=== PATIENT | male | born 1955 | race Caucasian/White ===

== ENCOUNTER → 2023-10-31 15:26 | Outpatient (REF) | payer MEDICARE, OTHER, SELFPAY | LOC: HWRAD 15:26 | PROVIDERS: ATTENDING PHYSICIAN Nurse Practitioner Family | DX: R05.3 Chronic cough (principal); J34.89 Other specified disorders of nose and nasal sinuses | CPT/HCPCS: 70486 ==

== ENCOUNTER → 2024-02-01 11:15 | Outpatient (REF) | payer MEDICARE, OTHER, SELFPAY ==
[2024-02-01 12:09] LABS: % Basophils 0.6 % (0-2); % Immature Granulocytes 0.3 % (0-0.5); % Lymphocytes 14.3 % (20.5-51.1); % Monocytes 9.8 % (1.7-9.3); Absolute Basophils 0.1 10^3/uL (0-0.2); Absolute Eosinophils 0.4 10^3/uL (0-0.7); Absolute Lymphocytes 1.4 10^3/uL (1.2-3.4); Absolute Monocytes 0.9 10^3/uL (0.1-0.6); Absolute Neutrophils 6.8 10^3/uL (1.4-6.5); Hematocrit 46.7 % (39.0-52.0); Hemoglobin 15.1 g/dL (13.0-18.0); Mean Corp Hgb Conc. 32.3 g/dL (33.0-37.0); Mean Corpuscular Hgb 28.8 pg (27.0-31.0); Mean Platelet Volume 11.1 fL (7.4-10.4); Nucleated Red Blood Cells % 0 % (-); Platelet Count 188 10^3/uL (130-400); Red Blood Cell Count 5.25 10^6/uL (4.70-6.10); Red Cell Dist. Width 15.2 % (11.5-14.5); White Blood Cell Count 9.6 10^3/uL (4.8-10.8)
[2024-02-01 12:40] LABS: Blood Urea Nitrogen 19 mg/dl (9-20); Calcium 10.4 mg/dl (8.4-10.2); Carbon Dioxide 28 mmol/L (22-30); Chloride 105 mmol/L (98-107); Glucose 89 mg/dl (70-99); Potassium 5.2 mmol/L (3.5-5.1); Sodium 140 mmol/L (135-145); eGFR > 60.00
== END ==
LOC: REG 11:15
PROVIDERS: ATTENDING PHYSICIAN Internal Medicine Cardiovascular Disease; FAMILY PHYSICIAN Internal Medicine Geriatric Medicine
DX: I48.0 Paroxysmal atrial fibrillation (principal)
CPT/HCPCS: 36415; 80048; 85025

== ENCOUNTER → 2024-04-24 08:17 | Outpatient (REF) | payer MEDICARE, OTHER, SELFPAY ==
[2024-04-24 09:23] LABS: % Basophils 0.6 % (0-2); % Eosinophils 3.7 % (0-6); % Immature Granulocytes 0.2 % (0-0.5); % Lymphocytes 14.8 % (20.5-51.1); % Monocytes 7.8 % (1.7-9.3); % Neutrophils 72.9 % (42.2-75.2); Absolute Basophils 0.1 10^3/uL (0-0.2); Absolute Eosinophils 0.4 10^3/uL (0-0.7); Absolute Lymphocytes 1.4 10^3/uL (1.2-3.4); Absolute Monocytes 0.7 10^3/uL (0.1-0.6); Absolute Neutrophils 6.9 10^3/uL (1.4-6.5); Hematocrit 43.4 % (39.0-52.0); Hemoglobin 14.6 g/dL (13.0-18.0); Mean Corp Hgb Conc. 33.6 g/dL (33.0-37.0); Mean Corpuscular Hgb 28.3 pg (27.0-31.0); Mean Corpuscular Volume 84.1 fL (80.0-94.0); Mean Platelet Volume 11.2 fL (7.4-10.4); Nucleated Red Blood Cells % 0 % (-); Platelet Count 176 10^3/uL (130-400); Red Blood Cell Count 5.16 10^6/uL (4.70-6.10); Red Cell Dist. Width 15.5 % (11.5-14.5); White Blood Cell Count 9.4 10^3/uL (4.8-10.8)
[2024-04-24 09:28] LABS: INR 1.51; PT 18.3 Sec (11.4-14.6)
[2024-04-24 09:29] LABS: APTT 35.9 Sec (23.4-35.0)
[2024-04-24 11:19] LABS: Blood Urea Nitrogen 22 mg/dl (9-20); Calcium 9.7 mg/dl (8.4-10.2); Carbon Dioxide 25 mmol/L (22-30); Chloride 102 mmol/L (98-107); Glucose 98 mg/dl (70-99); Potassium 4.3 mmol/L (3.5-5.1); Sodium 142 mmol/L (135-145); eGFR > 60.00
== END ==
LOC: REG 08:17
PROVIDERS: ATTENDING PHYSICIAN Internal Medicine Clinical Cardiac Electrophysiology; FAMILY PHYSICIAN Internal Medicine Geriatric Medicine
DX: I42.2 Other hypertrophic cardiomyopathy (principal); I48.91 Unspecified atrial fibrillation
CPT/HCPCS: 36415; 80048; 85025; 85610; 85730

== ENCOUNTER → 2024-06-25 08:38 | Outpatient (REF) | payer MEDICARE, OTHER, SELFPAY ==
[2024-06-25 10:03] LABS: % Basophils 0.5 % (0-2); % Eosinophils 5.5 % (0-6); % Immature Granulocytes 0.2 % (0-0.5); % Lymphocytes 10.2 % (20.5-51.1); % Monocytes 9.4 % (1.7-9.3); % Neutrophils 74.2 % (42.2-75.2); Absolute Eosinophils 0.5 10^3/uL (0-0.7); Absolute Lymphocytes 0.8 10^3/uL (1.2-3.4); Absolute Monocytes 0.8 10^3/uL (0.1-0.6); Absolute Neutrophils 6.1 10^3/uL (1.4-6.5); Hematocrit 44.6 % (39.0-52.0); Mean Corp Hgb Conc. 33.6 g/dL (33.0-37.0); Mean Corpuscular Hgb 28.1 pg (27.0-31.0); Mean Corpuscular Volume 83.7 fL (80.0-94.0); Mean Platelet Volume 11.8 fL (7.4-10.4); Nucleated Red Blood Cells % 0 % (-); Platelet Count 152 10^3/uL (130-400); Red Blood Cell Count 5.33 10^6/uL (4.70-6.10); Red Cell Dist. Width 14.8 % (11.5-14.5); White Blood Cell Count 8.2 10^3/uL (4.8-10.8)
[2024-06-25 10:59] LABS: NT-proBNP 292 pg/ml
[2024-06-25 11:01] LABS: ALT (SGPT) 71 U/L (0-50); AST (SGOT) 59 U/L (17-59); Albumin 4.7 g/dl (3.5-5.0); Alkaline Phosphatase 72 U/L (38-126); Blood Urea Nitrogen 25 mg/dl (9-20); Calcium 9.7 mg/dl (8.4-10.2); Carbon Dioxide 24 mmol/L (22-30); Chloride 104 mmol/L (98-107); Glucose 88 mg/dl (70-99); Iron 104 ug/dl (49-181); Potassium 4.1 mmol/L (3.5-5.1); Sodium 143 mmol/L (135-145); Total Bilirubin 0.9 mg/dl (0.2-1.3); Total Protein 7.2 g/dl (6.3-8.2); eGFR > 60.00
[2024-06-27 12:01] LABS: Transferrin 289 mg/dL (200-360)
== END ==
LOC: REG 08:38
PROVIDERS: ATTENDING PHYSICIAN Internal Medicine Advanced Heart Failure and Transplant Cardiology; FAMILY PHYSICIAN Internal Medicine Geriatric Medicine
DX: I42.2 Other hypertrophic cardiomyopathy (principal); I50.9 Heart failure, unspecified
CPT/HCPCS: 36415; 80053; 82728; 83540; 83880; 84466; 85025; 86900; 86901

== ENCOUNTER 2024-08-18 21:44 | Inpatient (IN) | payer MEDICARE, OTHER, SELFPAY ==
[2024-08-18] VITALS (13 sets, daily range): BP systolic 73–90; BP diastolic 53–73
[2024-08-18 17:58] LABS: % Basophils 0.5 % (0-2); % Eosinophils 2.8 % (0-6); % Immature Granulocytes 0.2 % (0-0.5); % Lymphocytes 15.7 % (20.5-51.1); % Monocytes 10.8 % (1.7-9.3); Absolute Basophils 0.1 10^3/uL (0-0.2); Absolute Eosinophils 0.3 10^3/uL (0-0.7); Absolute Lymphocytes 1.6 10^3/uL (1.2-3.4); Absolute Monocytes 1.1 10^3/uL (0.1-0.6); Absolute Neutrophils 7.1 10^3/uL (1.4-6.5); Hematocrit 49.1 % (39.0-52.0); Hemoglobin 16.2 g/dL (13.0-18.0); Mean Corpuscular Hgb 28.8 pg (27.0-31.0); Mean Corpuscular Volume 87.4 fL (80.0-94.0); Mean Platelet Volume 11.1 fL (7.4-10.4); Nucleated Red Blood Cells % 0 % (-); Platelet Count 186 10^3/uL (130-400); Red Blood Cell Count 5.62 10^6/uL (4.70-6.10); Red Cell Dist. Width 15.8 % (11.5-14.5); White Blood Cell Count 10.1 10^3/uL (4.8-10.8)
[2024-08-18 18:14] LABS: ALT (SGPT) 51 U/L (0-50); AST (SGOT) 49 U/L (17-59); Alkaline Phosphatase 62 U/L (38-126); Blood Urea Nitrogen 35 mg/dl (9-20); Calcium 9.6 mg/dl (8.4-10.2); Chloride 103 mmol/L (98-107); Glucose 100 mg/dl (70-99); Potassium 4.8 mmol/L (3.5-5.1); Sodium 141 mmol/L (135-145); Total Bilirubin 0.6 mg/dl (0.2-1.3); Total Protein 7.3 g/dl (6.3-8.2); eGFR 55.09
[2024-08-18 18:23] LABS: Albumin 4.9 g/dl (3.5-5.0); Carbon Dioxide 23 mmol/L (22-30)
--- NOTE | 2024-08-18 18:31 | ED.GENMED ---
History of Present Illness
General
Chief Complaint: Cardiac Symptoms
Source: patient and spouse
Exam Limitations: none
Time Seen by Provider: 08/18/24 18:10
Nursing documentation reviewed up to this point in time: agreed with
History of Present Illness
History of Present Illness:
69-year-old male presents emergency department due to chest pressure and palpitations ongoing throughout today. He still feels some chest pressure. He has history of atrial fibrillation, and follows with cardiology at [facility].
He has an ICD that was initially implanted in the mid .
Past History
Past History
ED Past Medical History: Arrthythmia (A fib) and Other (Hypertrophic Cardiomyopathy); Negative Asthma, HTN, Hypercholesterolemia or NIDDM
ED Past Surgical History: Cardiac (Defibulator,, Ablation) and Other (ENT)
Social History
Tobacco: Non-smoker
Alcohol: Occasional
Drug: None
Personal:
Living: with family
Employment: Employed
Family History
Family History: Other (Noncontributory)
Review of Systems
Review of Systems
Allergies reviewed?: Yes
All Other Systems: Not applicable
Constitutional: Reports no symptoms
EENT: Reports no symptoms
Respiratory: Reports no symptoms
Cardiac: Reports chest pain and palpitations
ABD/GI: Reports no symptoms
: Reports no symptoms
Musculoskeletal: Reports no symptoms
Skin: Reports no symptoms
Neurological: Reports no symptoms
Endocrine: Reports no symptoms
Hematologic/Lymphatic: Reports no symptoms
Psychiatric: Reports no symptoms
Phy Exam
Physical Exam
Physical Exam:
Physical Exam
General: no apparent distress, not acutely ill
Neck: supple. no meningeal signs. normal posterior pharynx
Heart: s1/s2 regular rate and rhythm, no murmur. equal radial
pulses. pacemaker.
HEENT: Pupils equal round reactive to light, EOMI
Lungs: no acute respiratory distress. clear bilaterally
Abdomen: normal bowel sounds. not tender. no CVAT
Neuro: alert and oriented. no focal neurological deficits cranial nerves II through XII intact
Skin: no rash
Psychiatric: well kept. interactive and cooperative
Extremities: no edema. no calf tenderness. negative homans. good distal pulses
Course
Orders/Labs/Results
Orders:
Orders
08/18/24 17:22
Electrocardiogram (*1) Urgent
Reason for Study: Atrial Fibrillation
EKG- Treatment ONCE
08/18/24 17:40
CR Chest - 2 Views Urgent
Comment:
Reason For Exam: SOB
08/18/24 17:50
Complete Blood Count/With Diff Urgent
Comprehensive Metabolic Panel Urgent
NT-proBNP Urgent
Troponin I Urgent
08/18/24 20:42
0.9% Sodium Chloride 500 ml [Nss] 500 ml IV BOLUS
Abnormal Lab Results
08/18/24
17:50
RDW 15.8 H %
(11.5-14.5)
MPV 11.1 H fL
(7.4-10.4)
Absolute Neuts (auto) 7.1 H 10^3/uL
(1.4-6.5)
Absolute Monos (auto) 1.1 H 10^3/uL
(0.1-0.6)
Lymphocytes % 15.7 L %
(20.5-51.1)
Monocytes % 10.8 H %
(1.7-9.3)
BUN 35 H mg/dl
(9-20)
Creatinine 1.4 H mg/dL
(0.7-1.3)
Glucose 100 H mg/dl
(70-99)
ALT 51 H U/L
(0-50)
08/18/24 17:50
08/18/24 17:50
Vital Signs
Initial and Last Documented VS:
Initial Vital Signs
Temp Pulse Resp BP Pulse Ox
98.2 F 110 20 90/58 99
08/18/24 17:37 08/18/24 17:37 08/18/24 17:37 08/18/24 17:37 08/18/24 17:37
Last Documented Vital Signs
Temp Pulse Resp BP Pulse Ox
98.2 F 110 20 90/58 99
08/18/24 17:37 08/18/24 17:37 08/18/24 17:37 08/18/24 17:37 08/18/24 17:37
MDM/Problems Addressed
Differential Diagnosis Includes:
Dysrhythmia, hypovolemia, acute renal failure
MDM/Problems Addressed:
Six 9-year-old male with hyperkalemia, acute renal failure. Admit to hospitalist. No dysrhythmia noted.
Chronic conditions affecting care: Cardiomyopathy and Arrhythmia
Acute Exacerbation and/or Progression of Chronic Illness: Cardiomyopathy and Arrhythmia
*Radiology
Radiology exam reviewed: preliminary read by ED provider (Chest x-ray no acute findings)
*Pulse Oximetry
Patient hypoxic: no
*EKG
Interpreted by ED Provider?: Yes
EKG Intrepretation Date: 08/18/24
EKG Intrepretation Time: 17:45
Interpretation: abnormal
Comparison EKG: no changes
Heart Rate: 104
Rate: tachycardiac
Rhythm: ventricular paced
[place]: normal axis
Interval: normal interval
QRS Pattern: left bundle branch block
Ischemia: no ischemia
*Sales Marketing Manager Interpretation
Rate: normal
Interpretation: abnormal
Heart Rate: 90
Rhythm: ventricular paced
*Critical Care Note
Total Time (30-74mins, 75-104mins- exclusive of procedures): Not Applicable
Data Reviewed
Review of Other/Old Records Reveals: Labs (Creatinine 1.0 on 06/25/2024)
Source: records
Patient Management
Social determinants of health affecting care: Living situation and Strong social support
Discussion with other providers: Hospitalist
Escalation/DeEscalation of care consider admission/obs:
Admission indicated
ED Attending Note
-
Portions of this chart may have been created with voice recognition software.� Occasional wrong word or��sound alike� substitutions may have occurred due to the inherent limitations of voice recognition software.
Discharge Plan
Departure
Patient Disposition: Admit
Date of Disposition: 08/18/24
Time of Disposition: 20:43
Admit to: IMU
Presentation/result/management discussed w/ accepting MD/DO: Hospitalist
Patient with high blood pressure during this ER visit?: No
Condition: Fair
Discharge Problem:
Acute renal failure, Hypovolemia, Palpitations
Prescriptions:
No Action
zolpidem 10 MG tablet
10 mg PO HSPRN PRN (Reason: insomnia)
escitalopram oxalate 10 MG tablet
10 mg PO DAILY
rivaroxaban [Xarelto] 20 MG tablet
20 mg PO DAILY
ofloxacin 1 DROP drops
2 drp RIGHT EAR BID
prednisone 20 MG tablet
20 mg PO DAILY
clindamycin HCl 150 MG capsule
150 mg PO Q6
sulfamethoxazole-trimethoprim 1 TABLET tablet
1 tab PO Q12H
nadolol 20 MG tablet
20 mg PO DAILY
oxycodone-acetaminophen 5 MG/325 MG tablet
1 tab PO Q6HPRN PRN (Reason: severe post op pain)
famotidine 20 MG tablet
20 mg PO BID Qty: 28 0RF
Rx Instructions:
Take 20 mg twice a day for 14 days
ascorbic acid (vitamin C) [Vitamin C] 500 MG tablet
1,000 mg PO BID Qty: 56 0RF
Rx Instructions:
Take 1,000 mg twice a day for 14 days
zinc sulfate 220 MG capsule
220 mg PO DAILY Qty: 14 0RF
Rx Instructions:
Take 220 mg daily for 14 days
cholecalciferol (vitamin D3) 1,000 UNITS tablet
2,000 units PO DAILY Qty: 28 0RF
Rx Instructions:
Take 2,000 units daily for 14 days
melatonin 5 MG tablet
5 mg PO HS Qty: 14 0RF
Rx Instructions:
Take 5 mg daily at bedtime for 14 days
Referrals:
Alex Dietz MD [Active] -
Interventions
Interventions:
*General Assessment Last Done: 08/18/24 17:37
Discharge Date and Time
Print Language: NAURUAN
[2024-08-18 18:44] LABS: NT-proBNP 1330 pg/ml
[2024-08-18] MEDS: NSS 500 IV (21:00)
--- NOTE | 2024-08-18 21:26 | HPS.HSE ---
Family Physician
-
Family Physician: Tao Chicas
Chief Complaint
-
chest pressure, palpitations
History of Present Illness
69-year-old male past medical history of atrial fibrillation, hypertrophic cardiomyopathy with ICD, presenting with chest pain and palpitations ongoing throughout the day for the past few days. He denies any dizziness. He denies any lower
extremity edema or weight gain.
Patient follows cardiology at [place] and is enrolled in the study and was recently on amiodarone which was stopped in August.
He denies any fevers or chills, upper respiratory symptoms, cough, urinary symptoms, nausea vomiting or diarrhea.
Medical History
Past Medical History
Past Medical History: Reports Other (atrial fibrillation, hypertrophic cardiomyopathy with ICD)
Past Surgical History: Reports None
Social History
Tobacco: Non-smoker
Alcohol: None
Drug: None
Family History
Family History: Not pertinent
Allergies / Home Medications
Allergies reflects when Allergies were last updated in [facility].
Home Medications with original date entered in [facility]
Allergy/Medication List:
Allergies
Allergy/AdvReac Type Severity Reaction Status Date / Time
doxycycline Allergy Mild Unknown Verified 08/18/24 17:37
Home Medications
rivaroxaban 20 mg tablet (Xarelto) 20 mg PO DAILY 12/05/18
Mupirocin 5 mg irrigation BID 08/18/24
budesonide 0.5 mg/2 mL suspension for nebulization 0.5 mg irrigation BID 08/18/24
empagliflozin 10 mg tablet (Jardiance) 10 mg PO DAILY 08/18/24
eszopiclone 3 mg tablet (Lunesta) 3 mg PO HS 08/18/24
furosemide 40 mg tablet 40 mg PO DAILY 08/18/24
magnesium oxide 250 mg PO DAILY 08/18/24
metoprolol succinate 25 mg tablet,extended release 24 hr 50 mg PO QPM 08/18/24
rosuvastatin 20 mg tablet 20 mg PO DAILY 08/18/24
sacubitril 49 mg-valsartan 51 mg tablet (Entresto) 1 tab PO BID 08/18/24
spironolactone 25 mg tablet 25 mg PO DAILY 08/18/24
therapeutic multivitamin 1 tab PO DAILY 08/18/24
Review of Systems
-
History Source: Patient
A 12 point ROS was completed and negative except as noted: Yes
Constitutional: Reports No Symptoms
EENT: Reports No Symptoms
Respiratory: Reports See HPI
Cardiac: Reports See HPI
Abdomen/GI: Reports No Symptoms
: Reports No Symptoms
Musculoskeletal: Reports No Symptoms
Skin: Reports No Symptoms
Neurological: Reports No Symptoms
Endocrine: Reports No Symptoms
Hematologic/Lymphatic: Reports No Symptoms
Psych: Reports No Symptoms
Physical Exam
Vital Signs
Vital Signs
Temp Pulse Resp BP Pulse Ox
98.2 F 110 20 90/58 99
08/18/24 17:37 08/18/24 17:37 08/18/24 17:37 08/18/24 17:37 08/18/24 17:37
Physical Exam
General: Well Developed, Well Nourished and No Apparent Distress
HEENT: NormoCephalic, Moist mucous membranes and Atraumatic
Respiratory: Clear
Cardiac: S1/S2 and Regular Rhythm; No Murmur or Rub
GI: Soft, Non Tender, Non Distended and Normal Bowel Sounds; No Organomegaly
Rectal: Deferred by Provider
Musculoskeletal: No Clubbing, No Cyanosis and No Edema
Skin: No Rash
Neuro: Nonfocal/grossly intact
Laboratory Results
-
08/18/24 17:50
08/18/24 17:50
Laboratory Results
Total Bilirubin 0.6 mg/dl (0.2-1.3) 08/18/24 17:50
AST 49 U/L (17-59) 08/18/24 17:50
ALT 51 U/L (0-50) H 08/18/24 17:50
Alkaline Phosphatase 62 U/L (38-126) 08/18/24 17:50
Troponin I 0.020 ng/ml 08/18/24 17:50
Data Reviewed
-
Lab Data: Labs Reviewed by me
Old Records: Reviewed
Impression/Plan
-
IMPRESSION:
PLAN:
# Chest pressure/palpitations
-Troponin of 0.02
-EKG shows ventricularly paced rhythm
-Telemetry monitoring
-Trend troponins
-Chest x-ray shows
-ICD to be interrogated
# Hypotension secondary to overdiuresis
-Unclear trigger, no signs of infection
-No increase in cardiac medications recently
-Hold Entresto, spironolactone, Lasix, Jardiance, metoprolol for now
-Needs medication adjustment, cardiology consulted
# Acute kidney injury secondary to overdiuresis/hypotension
-IV fluids
-Hold Entresto, spironolactone, Lasix, Jardiance,
History of atrial fibrillation
-Continue Xarelto
-Hold metoprolol
Hypertrophic cardiomyopathy with ICD
Insomnia
-Continue Lunesta
Full code
DVT prophylaxis�Xarelto
Cardiac diet
[2024-08-18] MEDS: NSS 1000 IV (23:47)
[2024-08-19] VITALS (33 sets, daily range): BP systolic 65–129; BP diastolic 42–100; BMI 31.7; BMI 30.5
[2024-08-19 03:27] LABS: % Basophils 0.6 % (0-2); % Eosinophils 3.5 % (0-6); % Immature Granulocytes 0.2 % (0-0.5); % Lymphocytes 17.3 % (20.5-51.1); % Monocytes 10.6 % (1.7-9.3); % Neutrophils 67.8 % (42.2-75.2); Absolute Basophils 0.1 10^3/uL (0-0.2); Absolute Eosinophils 0.3 10^3/uL (0-0.7); Absolute Lymphocytes 1.6 10^3/uL (1.2-3.4); Absolute Neutrophils 6.1 10^3/uL (1.4-6.5); Hematocrit 43.6 % (39.0-52.0); Hemoglobin 14.9 g/dL (13.0-18.0); Mean Corp Hgb Conc. 34.2 g/dL (33.0-37.0); Mean Corpuscular Hgb 29.4 pg (27.0-31.0); Nucleated Red Blood Cells % 0 % (-); Red Blood Cell Count 5.07 10^6/uL (4.70-6.10); Red Cell Dist. Width 15.7 % (11.5-14.5)
[2024-08-19 04:21] LABS: Mean Platelet Volume 11.7 fL (7.4-10.4); Platelet Count 112 10^3/uL (130-400)
[2024-08-19] MEDS: NSS 1000 IV ×2 (04:45→07:53)
[2024-08-19 05:09] LABS: Troponin I 0.013 ng/ml
[2024-08-19 05:46] LABS: ALT (SGPT) 41 U/L (0-50); AST (SGOT) 36 U/L (17-59); Albumin 3.9 g/dl (3.5-5.0); Alkaline Phosphatase 49 U/L (38-126); Blood Urea Nitrogen 32 mg/dl (9-20); Calcium 8.9 mg/dl (8.4-10.2); Carbon Dioxide 22 mmol/L (22-30); Chloride 107 mmol/L (98-107); Estimated Creatinine Clearance 82 ml/min; Glucose 84 mg/dl (70-99); Potassium 4.4 mmol/L (3.5-5.1); Sodium 141 mmol/L (135-145); Total Bilirubin 0.7 mg/dl (0.2-1.3); Total Protein 6.1 g/dl (6.3-8.2); eGFR > 60.00
--- NOTE | 2024-08-19 06:20 | PTCARENOTE ---
Pt admitted for palpitations, ANNA and hypotension. Labs sent and resulted. IVF started. BP remains 80s/50s, ROPE CLEANER Nadia Hernández at bedside for conversation/education. Pt wishes to speak to [facility] (where he is part of a clinical study) before accepting
pressors for hypotension. Pt has contact numbers at [facility] and plans to call this morning. SHAHIDA Hernández also told patient she will consult cards to get a plan in place. Pt updated on plan of care. VAT team placed line/er[facility] labs. Will monitor.
[2024-08-19] MEDS: MAGNESIUM OXIDE 250 MG PO (07:51)
[2024-08-19] MEDS: THERAGRAN 1 TABLET PO (07:51)
[2024-08-19] MEDS: CRESTOR 20 MG PO (07:51)
[2024-08-19] MEDS: XARELTO 20 MG PO (07:51)
--- NOTE | 2024-08-19 08:21 | PTCARENOTE ---
pt received from previous rn- aox4, v paced on monitor, room air. pt c/o chest pressure, ekg completed, troponin sent. Dr. Suarez shown ekg and notified, no further orders. ivf continue. all safety precautions in place, call tracy within reach
[2024-08-19 09:05] LABS: Troponin I 0.013 ng/ml
--- NOTE | 2024-08-19 09:59 | CON.CAR ---
Addendum entered and electronically signed by Justin Solomon MD 08/19/24 11:39:
Patient seen and examined
Agree with BRYNN Miranda's note and assessment
Reviewed BRYNN Miranda's plan
History summarized and reviewed his [employer] ICD interrogation personally demonstrating atrial tachycardia at 110 bpm in DDI mode with variable conduction and currently he is tracking his atrial tachycardia at 110 bpm and is relatively
asymptomatic although has noticed blood pressures that are relatively soft upon presentation in the 80s to 90s systolic. He had a recent ablation in May 2024 although I do not have the available ablation report and have reached out to
[facility] with details of his care. He recently stopped amiodarone and now has recurrent atrial tachyarrhythmia. He has noted to have a history of hypertrophic cardiomyopathy which is contributing likely to his soft blood pressures.
Examination:
Telemetry noted
Reviewed his ICD interrogation
Alert and orient x 3
Nonfocal neurologically
JVP 6
Cor regular no murmur
Lungs clear to auscultation bilaterally
Abdomen soft nontender positive bowel sounds
No extremity edema
Impression:
Presented 08/18/2024 with palpitations, tachycardia, chest discomfort
Hypotension
ANNA
Tachycardia
Hypertrophic cardiomyopathy
Heart failure recovered reduced ejection fraction
[employer] ICD
Paroxysmal atrial fibrillation/flutter
Status post PVI ablation with substrate modification with posterior wall modification, mitral annular flutter ablation May 2024 at [facility]
s/p CV February 2024Obstructive sleep apnea
Status post inspire device
Echo 06/11/2024: EF 50%, moderate left atrial dilation. Moderate right atrial dilation. Moderate MR. Mild to moderate AI. Moderate TR with PAP 41 mmHg. Aortic root sinus of Valsalva 4.3 cm, ascending ao 4.2 cm
Echo March 2024 (OSH): EF 35 to 40%
Echo September 2022 (OSH): EF 55 to 60%
Plan:
-Presented 08/18/2024 with palpitations, tachycardia, chest discomfort which started 08/15/2024
-Found to be tachycardic and hypotensive on arrival. Also ANNA with creat 1.4
-BP and creat improving with IV fluids. Would not give too much fluids
-Per review of telemetry patient continues to be tachycardic with heart rates in the low 100s to 130s and is ventricular paced.
-ICD interrogated 08/19/2024 which showed atrial tachycardia and 110 bpm during interrogation.
-The family requested that we reach out to their team at [facility] for input regarding care. I directly reached out to my colleague and friend Dr. Frausto relaying the details of care and asked him to reach out to patient and his to coordinate a
plan. I discussed with patient and at the bedside that it would be reasonable to resume amiodarone and perform cardioversion to stabilize patient and he can have outpatient follow-up with Dr. Frausto. After this discussion they immediately
requested transfer to [facility]. I did reassure patient and family that we can provide antiarrhythmic drug therapy and cardioversion and we are a very high volume ablation program as well with experience managing post ablation arrhythmias. I
communicated with her EP at [facility] that we are happy to help either way and also communicated with the intensive care unit team at the bedside.
-Patient reports he has been compliant with taking his Xarelto and not missing or skipping any doses.
-Patient has history of hypertrophic cardiomyopathy and waxing and waning ejection fraction. Most recently in June 2024 EF improved to 50% on outpatient echo. Continue GDMT
-Toprol, Entresto, Aldactone, Jardiance and Lasix currently on hold given hypotension and ANNA. Continue to monitor and trend with eventual resumption with improvement of blood pressure
-Troponin negative x 2. Chest pain sounds atypical and most likely related to tachycardia.
-Records outpatient corporate intern reviewed.
Of note patient did mention possible transfer to [facility]. Would await results of ICD interrogation.
Original Note:
Consultation
Consultation Request
Date/Time Consultation Requested: 08/19/2024
Date/Time Consultation Performed: 08/19/2024
Requesting Provider: Dr. Suarez
Performing Provider: Ebony Miranda PA-C for Dr. Vinicius Barros
Reason for Consultation: Tachycardia, hypotension, cardiomyopathy
Medical History
-
History of Present Illness:
Patient is a 69-year-old male with past medical history significant for paroxysmal atrial fibrillation with recent ablation May 2024, hypertrophic cardiomyopathy with [employer] [place] ICD, obstructive sleep apnea with inspire who presents to
emergency department 08/18/2024 with complaints of hypotension, tachycardia/palpitations. Patient reports he had recent ablation at [facility] in May 2024 and was on amiodarone until August 06 when it was discontinued. He
reports baseline heart rates are in the 70s. 3 days prior to admission patient noted increased palpitations and elevated heart rate associated with some fatigue, mild dyspnea and pressure and chest when he was taking deep breaths. He noticed his
heart rate to be elevated in the 100s to 130s on pulse oximetry. He contacted his extractions technologist at [facility] who told him to go to emergency department. On arrival to emergency department patient's EKG showed ventricular paced rhythm in the low 100 bpm.
Chest x-ray showed no acute abnormality. Troponin x 2 negative. ProBNP 1330. Creatinine was noted to be elevated at 1.4. He was noted to be hypotensive with blood pressures 70-80's/60's bpm. Patient received 2 L of IV fluid in emergency
department. All cardiac medications with exception of Xarelto and Crestor placed on hold secondary to hypotension.
At time of this evaluation patient sitting up on edge of bed. He still notes heart palpitations and tachycardia.
Past medical history:
Hypertrophic cardiomyopathy
Heart failure with recovered ejection fraction
[employer] ICD
Paroxysmal atrial fibrillation
Status post ablation May 2024 at [facility]
Obstructive sleep apnea
Status post inspire device
Past Medical History
Past Medical History: Other (See HPI)
Past Surgical History: Cardiac (A-fib ablation May 2024, [employer] ICD) and Other (Inspire implant)
Social History
Tobacco: Non-Smoker
Alcohol: None
Drug: None
Personal:
Living: With Family
Employment: Employed
Family History
Family History: Reviewed & Not Pertinent
Allergies / Home Medications
Allergy/AdvReac Type Severity Reaction Status Date / Time
doxycycline Allergy Mild Unknown Verified 08/18/24 17:37
�Medication �Instructions �Recorded �Confirmed �Type
rivaroxaban 20 mg tablet (Xarelto) 20 mg PO DAILY 12/05/18 08/18/24 History
Mupirocin 5 mg irrigation BID 08/18/24 08/18/24 History
budesonide 0.5 mg/2 mL suspension 0.5 mg irrigation BID 08/18/24 08/18/24 History
for nebulization
empagliflozin 10 mg tablet 10 mg PO DAILY 08/18/24 08/18/24 History
(Jardiance)
eszopiclone 3 mg tablet (Lunesta) 3 mg PO HS 08/18/24 08/18/24 History
furosemide 40 mg tablet 40 mg PO DAILY 08/18/24 08/18/24 History
magnesium oxide 250 mg PO DAILY 08/18/24 08/18/24 History
metoprolol succinate 25 mg 50 mg PO QPM 08/18/24 08/18/24 History
tablet,extended release 24 hr
rosuvastatin 20 mg tablet 20 mg PO DAILY 08/18/24 08/18/24 History
sacubitril 49 mg-valsartan 51 mg 1 tab PO BID 08/18/24 08/18/24 History
tablet (Entresto)
spironolactone 25 mg tablet 25 mg PO DAILY 08/18/24 08/18/24 History
therapeutic multivitamin 1 tab PO DAILY 08/18/24 08/18/24 History
Review of Systems
-
History Source: Patient
All other systems: Negative unless noted
Physical Exam
Vital Signs
Temp Pulse Resp BP Pulse Ox
97.9 F 108 30 86/63 96
08/19/24 08:19 08/19/24 08:45 08/19/24 08:45 08/19/24 08:30 08/19/24 08:45
GEN: No distress, awake, Ox3 sitting up on side of bed
HEENT: supple, anicteric, mmm
LUNGS: CTA, no wheezes/rales, on room air
CV: Reg, S1/S2, 1/6 murmur, no rub or gallop
ABD: soft, BS+, NT/ND
EXT: No edema, clubbing or cyanosis
NEURO: Gross non-focal
SKIN: No rash, warm, dry, pink
Lab Results
08/19/24 03:03
08/19/24 04:24
Troponin I 0.013 ng/ml 08/19/24 08:33
Viz-Y-Igbijtabmpm Pept 1330 pg/ml 08/18/24 17:50
Impression / Plan
-
PCP: Tao Chicas
Supervisor Record Press: Henry Sethi
Service Captain: Henry Lamb
Impression:
Presented 08/18/2024 with palpitations, tachycardia, chest discomfort
Hypotension
ANNA
Tachycardia
Hypertrophic cardiomyopathy
Heart failure recovered reduced ejection fraction
[employer] ICD
Paroxysmal atrial fibrillation/flutter
Status post PVI ablation with substrate modification with posterior wall modification, mitral annular flutter ablation May 2024 at [facility]
s/p CV February 2024
Obstructive sleep apnea
Status post inspire device
Echo 06/11/2024: EF 50%, moderate left atrial dilation. Moderate right atrial dilation. Moderate MR. Mild to moderate AI. Moderate TR with PAP 41 mmHg. Aortic root sinus of Valsalva 4.3 cm, ascending ao 4.2 cm
Echo March 2024 (OSH): EF 35 to 40%
Echo September 2022 ([facility]): EF 55 to 60%
Plan:
-Presented 08/18/2024 with palpitations, tachycardia, chest discomfort which started 08/15/2024
-Found to be tachycardic and hypotensive on arrival. Also ANNA with creat 1.4
-BP and creat improving with IV fluids. Would not give too much fluids
-Per review of telemetry patient continues to be tachycardic with heart rates in the low 100s to 130s and is ventricular paced.
-ICD interrogated 08/19/2024 which showed atrial tachycardia and 110 bpm during interrogation.
-Would resume amiodarone 200 mg BID for rate/rhythm control; will reach out to Dr. Frausto to discuss
-Patient reports he has been compliant with taking his Xarelto and not missing or skipping any doses.
-Patient has history of hypertrophic cardiomyopathy and waxing and waning ejection fraction. Most recently in June 2024 EF improved to 50% on outpatient echo. Continue GDMT
-Toprol, Entresto, Aldactone, Jardiance and Lasix currently on hold given hypotension and ANNA. Continue to monitor and trend with eventual resumption with improvement of blood pressure
-Troponin negative x 2. Chest pain sounds atypical and most likely related to tachycardia.
-Records outpatient corporate intern reviewed.
Of note patient did mention possible transfer to [facility]. Would await results of ICD interrogation.
HPI 08/19/2024:
Patient is a 69-year-old male with past medical history significant for paroxysmal atrial fibrillation with recent ablation May 2024, hypertrophic cardiomyopathy with [employer] [place] ICD, obstructive sleep apnea with inspire who presents to
emergency department 08/18/2024 with complaints of hypotension, tachycardia/palpitations. Patient reports he had recent ablation at [facility] in May 2024 and was on amiodarone until August 06 when it was discontinued. He
reports baseline heart rates are in the 70s. 3 days prior to admission patient noted increased palpitations and elevated heart rate associated with some fatigue, mild dyspnea and pressure and chest when he was taking deep breaths. He noticed his
heart rate to be elevated in the 100s to 130s on pulse oximetry. He contacted his extractions technologist at [facility] who told him to go to emergency department. On arrival to emergency department patient's EKG showed ventricular paced rhythm in the low 100 bpm.
Chest x-ray showed no acute abnormality. Troponin x 2 negative. ProBNP 1330. Creatinine was noted to be elevated at 1.4. He was noted to be hypotensive with blood pressures 70-80's/60's bpm. Patient received 2 L of IV fluid in emergency
department. All cardiac medications with exception of Xarelto and Crestor placed on hold secondary to hypotension.
At time of this evaluation patient sitting up on edge of bed. He still notes heart palpitations and tachycardia.
Data Reviewed
-
EKG: Report Reviewed by me, Discussed with Physician, Discussed with Patient and Discussed with Family
Radiology: Report Reviewed by me, Discussed with Physician, Discussed with Patient and Discussed with Family
Labs: Labs Reviewed by me, Discussed with Physician, Discussed with Patient and Discussed with Family
Old Records: Requested
--- NOTE | 2024-08-19 10:53 | W.PN.HOSP.TC ---
Today's Communication/Plan
-
Cardiology consult.
Assessment / Plan
Assessment / Plan
Physical exam:
General: Acutely ill
HEENT: Normocephalic, Atraumatic and Dry Mucous Membranes
Respiratory: Clear to Auscultation; Negative Wheezes, Rales or Rhonchi
Cardiac: Irregular rate and rhythm, tachycardic, and S1/S2
GI: Soft, Nontender and Nondistended
Musculoskeletal: No Clubbing, No Cyanosis and No Edema
Neuro: Awake, Alert and Oriented, no gross neurological deficit
Psych: Anxious
A/P:
Chest pain, palpitations, tachycardia, hypotension:
His symptoms are likely related to recurrent A-fib or a flutter or atrial tachycardia but interrogation of AICD will confirm or reject this hypothesis.
Normal troponin and downtrending x 2
Telemetry shows wide-complex tachycardia in the low 100's ventricular paced rhythm
Stop IV fluid to avoid volume overload
Might need to restart antiarrhythmics but will defer to cardiology
Cardiology consulted today-discussed with cardiology via [place] text today
Patient is in communication with cardiology team at [place] and they are discussing if he would be a candidate for transfer but at the moment no decision has been made especially since we have the same services that can be accomplished here at this
hospital. Discussed with at bedside as well.
Patient is somewhat frustrated that he stopped antiarrhythmics recently and was hoping to stay off but most likely will require it again.
Continue cardiac monitoring
ANNA:
Probably prerenal but also hypotension/cardiac contributoring
Improved with IV fluid
Stop IV fluids now
Avoid nephrotoxic
Monitor renal function
Hypotension:
Continue hold diuretics, Jardiance, Entresto, spironolactone
Monitor blood pressure closely
Chronic heart failure and hypertrophic cardiomyopathy with recovered reduced ejection fraction:
Latest echo cardiac in June 2024 EF 50% with moderate left atrial dilation, moderate right atrial dilation, moderate MR, mild to moderate AI, moderate TR with PAP 41 mmHg, aortic root sinus of Valsalva 4.3 cm and ascending aorta 4.2 cm.
Monitor volume status closely
Monitor in and out
Monitor daily weight
Paroxysmal atrial fibrillation/flutter:
Status post PVI ablation with substrate modification with posterior wall modification, mitral annular flutter ablation back in May 2024 at [place]
Status post cardioversion February 2024
On Xarelto 20 mg p.o. daily
Obstructive sleep apnea:
Status post inspire device
DVT prophylaxis:
Xarelto
CODE STATUS:
Full code
Total time spent on today's encounter was 52 minutes which included time spent in counseling the patient/family regarding diagnosis and treatment plan as listed above, goals of care, and symptom management. Case was discussed with nursing staff,
specialists, and care coordinators/case management. All labs and imaging personally reviewed by me. Remainder the time spent in detailed review of previous records, lab data, imaging, and other medical provider documentation.
Anticipated Discharge: > 48 hours
Subjective/Interval History
-
Date of Service: August 19, 2024
Patient having palpitations. He denies chest pain but does states that he has some 'chest discomfort'. No shortness of breath at rest. Afebrile
Objective Data
-
Labs:
Laboratory Results
08/19/24 08/19/24
03:03 04:24
WBC 9.0
Hgb 14.9
Hct 43.6
Plt Count 112 L D
Sodium Cancelled 141
Potassium Cancelled 4.4
Chloride Cancelled 107
Carbon Dioxide Cancelled 22
BUN Cancelled 32 H
Creatinine Cancelled 1.2
Glucose Cancelled 84
Calcium Cancelled 8.9
Total Bilirubin Cancelled 0.7
AST Cancelled 36
ALT Cancelled 41
Alkaline Phosphatase Cancelled 49
Vital Signs:
Vital Signs
Temp Pulse Resp BP Pulse Ox
97.9 F 108 30 86/63 96
08/19/24 08:19 08/19/24 08:45 08/19/24 08:45 08/19/24 08:30 08/19/24 08:45
I&O
08/18/24 08/19/24 08/20/24
06:59 06:59 06:59
Intake Total 700 / 700 450 / 450
Output Total 400 / 400 300 / 300
Balance 300 / 300 150 / 150
--- NOTE | 2024-08-19 12:32 | CM ---
CM following re: discharge planning.
Reviewed pt's chart, met with pt and pt's spouse at bedside.
Pt is a 69 year old male, admitted with primary dx of Hypertrophic cardiomyopathy.
Pt reports he lives with spouse 2SH, 3 steps to enter, has 3 supportive children. Pt described himself as independent in all areas [employer]JECTION MOLDING SUPERVISOR, drives, works.
PCP: Alex Eldridge
Pharmacy: [facility]
D/C plan: home with anticipated no needs. Spouse to transport at discharge.
CM will follow with discharge plan updates as hospitalization progress
[2024-08-19] MEDS: PACERONE 400 MG PO ×2 (15:48→22:29)
--- NOTE | 2024-08-19 15:52 | PTCARENOTE ---
Addendum entered by Gricelda Gutiérrez RN 08/19/24 15:56:
per Ebony Camilo- maintain bp systolic 80s-90s while pt asymptomatic. no further orders.
Original Note:
plan of care discussed with pt and at bedside- verbalized understanding. bp range from 70s-90s systolically, Ebony camilo notified. pt states goal bp by [place] [facility] is 90/60. pt asymptomatic, no complaints.
--- NOTE | 2024-08-19 20:02 | PTCARENOTE ---
Assessed. Pt A&Ox4. Moves all extremities. (+) sensation x4. Pt V-paced on the monitor currently in the 100's. (-) edema. Pt on RA. Abd soft nontender. (+) BS x4. Last BM 08/18. Skin in tact. Discussed NPO after midnight status as well as
cardioversion. Pt states no questions or concerns. No s/s of distress assessed. Will continue to monitor.
--- NOTE | 2024-08-19 21:01 | PTCARENOTE ---
Pt tx on monitor to rm [id number]. Report given to Atif CANSECO. No s/s of distress assessed.
[2024-08-19] MEDS: AMBIEN 10 MG PO (22:30)
[2024-08-20] VITALS (9 sets, daily range): BP systolic 91–128; BP diastolic 66–98; BMI 30.6
[2024-08-20 04:52] LABS: Hematocrit 45.2 % (39.0-52.0); Mean Corp Hgb Conc. 33.2 g/dL (33.0-37.0); Mean Corpuscular Hgb 28.7 pg (27.0-31.0); Mean Corpuscular Volume 86.6 fL (80.0-94.0); Platelet Count 135 10^3/uL (130-400); Red Blood Cell Count 5.22 10^6/uL (4.70-6.10); Red Cell Dist. Width 15.5 % (11.5-14.5)
[2024-08-20 05:03] LABS: Blood Urea Nitrogen 30 mg/dl (9-20); Calcium 9.4 mg/dl (8.4-10.2); Carbon Dioxide 22 mmol/L (22-30); Chloride 104 mmol/L (98-107); Estimated Creatinine Clearance 99 ml/min; Glucose 91 mg/dl (70-99); Magnesium 2.3 mg/dl (1.6-2.3); Potassium 5.2 mmol/L (3.5-5.1); Sodium 138 mmol/L (135-145); eGFR > 60.00
[2024-08-20] MEDS: XARELTO 20 MG PO (07:37)
[2024-08-20] MEDS: CRESTOR 20 MG PO (07:37)
[2024-08-20] MEDS: MAGNESIUM OXIDE 250 MG PO (07:37)
[2024-08-20] MEDS: PACERONE 400 MG PO ×3 (07:37→22:06)
[2024-08-20] MEDS: THERAGRAN 1 TABLET PO (07:38)
--- NOTE | 2024-08-20 07:41 | PTCARENOTE ---
Meds given with a sip of water, report given to Tonja in the microbiological laboratory technician, patient voided in the bathroom
--- NOTE | 2024-08-20 09:20 | W.PN.HOSP.TC ---
Today's Communication/Plan
-
Antiarrhythmics. Cardiac monitoring.
Assessment / Plan
Assessment / Plan
Physical exam:
General: Acutely ill
HEENT: Normocephalic, Atraumatic and Dry Mucous Membranes
Respiratory: Clear to Auscultation; Negative Wheezes, Rales or Rhonchi
Cardiac: Regular rate and rhythm, and S1/S2
GI: Soft, Nontender and Nondistended
Musculoskeletal: No Clubbing, No Cyanosis and No Edema
Neuro: Awake, Alert and Oriented, no gross neurological deficit
Psych: Anxious
A/P:
Chest pain, palpitations, tachycardia, hypotension:
Today he went for possible cardioversion but he was found to be normal sinus rhythm atrial paced and no cardioversion performed.
Currently on amiodarone 400 mg p.o. 3 times daily which might be the case why he is in normal sinus rhythm at the moment.
Continue cardiac monitoring
Discussed with patient and family at bedside
Rest of care per cardiology recommendations
Prior to today:
His symptoms are likely related to recurrent A-fib or a flutter or atrial tachycardia but interrogation of AICD will confirm or reject this hypothesis.
Normal troponin and downtrending x 2
Telemetry shows wide-complex tachycardia in the low 100's ventricular paced rhythm
Stop IV fluid to avoid volume overload
Might need to restart antiarrhythmics but will defer to cardiology
Cardiology consulted today-discussed with cardiology via [place] text today
Patient is in communication with cardiology team at [place] and they are discussing if he would be a candidate for transfer but at the moment no decision has been made especially since we have the same services that can be accomplished here at this
hospital. Discussed with at bedside as well.
Patient is somewhat frustrated that he stopped antiarrhythmics recently and was hoping to stay off but most likely will require it again.
Continue cardiac monitoring
ANNA:
Probably prerenal but also hypotension/cardiac contributing
Improved with IV fluid
Stop IV fluids now
Avoid nephrotoxic
Monitor renal function
Hypotension:
Continue hold diuretics, Jardiance, Entresto, spironolactone
Monitor blood pressure closely
Chronic heart failure and hypertrophic cardiomyopathy with recovered reduced ejection fraction:
Latest echo cardiac in June 2024 EF 50% with moderate left atrial dilation, moderate right atrial dilation, moderate MR, mild to moderate AI, moderate TR with PAP 41 mmHg, aortic root sinus of Valsalva 4.3 cm and ascending aorta 4.2 cm.
Monitor volume status closely
Monitor in and out
Monitor daily weight
Paroxysmal atrial fibrillation/flutter:
Status post PVI ablation with substrate modification with posterior wall modification, mitral annular flutter ablation back in May 2024 at [place]
Status post cardioversion February 2024
On Xarelto 20 mg p.o. daily
Obstructive sleep apnea:
Status post inspire device
DVT prophylaxis:
Xarelto
CODE STATUS:
Full code
Total time spent on today's encounter was 52 minutes which included time spent in counseling the patient/family regarding diagnosis and treatment plan as listed above, goals of care, and symptom management. Case was discussed with nursing staff,
specialists, and care coordinators/case management. All labs and imaging personally reviewed by me. Remainder the time spent in detailed review of previous records, lab data, imaging, and other medical provider documentation.
Anticipated Discharge: 24 - 48 hours
Subjective/Interval History
-
Date of Service: August 20, 2024
Patient 'frustrated due to events of a fib and back in sinus and requiring antiarrhythmics'. Reports no chest pain or shortness of breath at the moment.
Objective Data
-
Labs:
Laboratory Results
08/20/24
03:50
WBC 10.0
Hgb 15.0
Hct 45.2
Plt Count 135 D
Sodium 138
Potassium 5.2 H
Chloride 104
Carbon Dioxide 22
BUN 30 H
Creatinine 1.0
Glucose 91
Calcium 9.4
Vital Signs:
Vital Signs
Temp Pulse Resp BP Pulse Ox
98.1 F 110 18 99/73 98
08/20/24 06:51 08/20/24 08:00 08/20/24 06:51 08/20/24 06:53 08/20/24 06:53
I&O
08/19/24 08/20/24 08/21/24
06:59 06:59 06:59
Intake Total 700 / 700 930 / 930
Output Total 400 / 400 800 / 800
Balance 300 / 300 130 / 130
--- NOTE | 2024-08-20 09:34 | CM ---
Reviewed chart. Mr. Mitchell was transferred to IVU. Met with Mr. Mitchell to review discharge plans. He states he is feeling better and maybe able to go home soon. He states prior to admission he resides with his spouse in a two story home with three
steps to enter. He states he has a full flight of steps to get to bedroom/full bathroom. He states he has a powder room on the first floor. He states prior to admission he was independent with ambulation and adls. He states he does not have any
DME in the home. He states he has a prescription plan and uses [facility]. Medical work-up in progress. The discharge plan is to return home with his spouse when medically stable.
--- NOTE | 2024-08-20 09:46 | W.PN.CARDCBS ---
Today's Communication / Plan
-
For cardioversion today.
Impression / Plan
-
PCP: Tao Chicas
Plastics Design Engineer: Henry Sethi
Nursery Teacher: Henry Lamb
Impression:
Presented 08/18/2024 with palpitations, tachycardia, chest discomfort
Hypotension
ANNA
Tachycardia
Hypertrophic cardiomyopathy
Heart failure recovered reduced ejection fraction
[employer] ICD
Paroxysmal atrial fibrillation/flutter
Status post PVI ablation with substrate modification with posterior wall modification, mitral annular flutter ablation May 2024 at [place]
s/p CV February 2024
Obstructive sleep apnea
Status post inspire device
Echo 06/11/2024: EF 50%, moderate left atrial dilation. Moderate right atrial dilation. Moderate MR. Mild to moderate AI. Moderate TR with PAP 41 mmHg. Aortic root sinus of Valsalva 4.3 cm, ascending ao 4.2 cm
Echo March 2024 ([facility]): EF 35 to 40%
Echo September 2022 ([facility]): EF 55 to 60%
Plan:
-Presented 08/18/2024 with palpitations, tachycardia, chest discomfort which started 08/15/2024
-Found to be tachycardic and hypotensive on arrival. Also ANNA with creat 1.4
-BP and creat improving with IV fluids.
Would hold off on further IVFs
-Per review of telemetry patient continues to be tachycardic with heart rates in the low 100s to 130s and is ventricular paced.
ICD interrogated 08/19/2024 which shows atrial tachycardia at 110 bpm during interrogation.
Plan for CV today
Maintain amiodarone at current dose while hospitalized, then decrease to 200 mtg BID to complete 30 days from initiation of amio, then 200 mg daily
Maintain uninterrupted Xarelto
Arrangements have been made to follow-up with his primary roof painter at [facility], Dr. Frausto to discuss ongoing rhythm management options
-Patient has history of hypertrophic cardiomyopathy and waxing and waning ejection fraction.
Most recently in June 2024 EF improved to 50% on outpatient echo.
Much of his GDMT on hold related to hypotension and ANNA
Toprol, Entresto, Aldactone, Jardiance and Lasix currently on hold.
Renal function normalized, eventual resumption of GDMT for HFmrEF (can be slowly added back as in-pt as well as outpatient) with improvement of blood pressure (BP likely will improve with sinus rhythm)
-Troponin negative x 2. Chest pain sounds atypical and most likely related to tachycardia.
-Records outpatient roof painter reviewed.
Discussed with patient and his son at the bedside.
Total time spent today was 52 minutes in preparing to see the patient, seeing the patient and coordination of care. This included review of recent laboratory evaluations, cardiac testing, imaging studies, medical records as well as personally
interviewing and examining the patient, which included discussion of their tests, review/ordering medications, and communicating with other healthcare professionals and also treatment planning as well as counseling.
HPI 08/19/2024:
Patient is a 69-year-old male with past medical history significant for paroxysmal atrial fibrillation with recent ablation May 2024, hypertrophic cardiomyopathy with [employer] ICD, obstructive sleep apnea with inspire who presents to
emergency department 08/18/2024 with complaints of hypotension, tachycardia/palpitations. Patient reports he had recent ablation at [facility] in May 2024 and was on amiodarone until August 06 when it was discontinued. He
reports baseline heart rates are in the 70s. 3 days prior to admission patient noted increased palpitations and elevated heart rate associated with some fatigue, mild dyspnea and pressure and chest when he was taking deep breaths. He noticed his
heart rate to be elevated in the 100s to 130s on pulse oximetry. He contacted his band sawyer at [facility] who told him to go to emergency department. On arrival to emergency department patient's EKG showed ventricular paced rhythm in the low 100 bpm.
Chest x-ray showed no acute abnormality. Troponin x 2 negative. ProBNP 1330. Creatinine was noted to be elevated at 1.4. He was noted to be hypotensive with blood pressures 70-80's/60's bpm. Patient received 2 L of IV fluid in emergency
department. All cardiac medications with exception of Xarelto and Crestor placed on hold secondary to hypotension.
At time of this evaluation patient sitting up on edge of bed. He still notes heart palpitations and tachycardia.
Progress Note - Plastics Design Engineer
Subjective
Date of Service: August 20, 2024
This morning denies chest pain shortness of breath palpitations and dizziness
Objective
Labs:
08/20/24 03:50
08/20/24 03:50
Labs
Hgb 15.0 g/dL (13.0-18.0) 08/20/24 03:50
Hct 45.2 % (39.0-52.0) 08/20/24 03:50
Plt Count 135 10^3/uL (130-400) D 08/20/24 03:50
Sodium 138 mmol/L (135-145) 08/20/24 03:50
Potassium 5.2 mmol/L (3.5-5.1) H 08/20/24 03:50
BUN 30 mg/dl (9-20) H 08/20/24 03:50
Creatinine 1.0 mg/dL (0.7-1.3) 08/20/24 03:50
Glucose 91 mg/dl (70-99) 08/20/24 03:50
Troponins
08/18/24 08/19/24 08/19/24
17:50 03:12 04:24
Troponin I 0.020 Cancelled 0.013
08/19/24 08/19/24 08/19/24
07:50 08:33 15:15
Troponin I Cancelled 0.013 Cancelled
Vital Signs and I&O:
Vital Signs
Temp Pulse Resp BP Pulse Ox
98.1 F 110 18 99/73 98
08/20/24 06:51 08/20/24 08:00 08/20/24 06:51 08/20/24 06:53 08/20/24 06:53
Vital Signs
Temp Pulse Resp BP Pulse Ox
98.1 F 110 18 99/73 98
08/20/24 06:51 08/20/24 08:00 08/20/24 06:51 08/20/24 06:53 08/20/24 06:53
Intake & Output
08/18/24 08/19/24 08/20/24 08/21/24
06:59 06:59 06:59 06:59
Intake Total 700 / 700 930 / 930
Output Total 400 / 400 800 / 800
Balance 300 / 300 130 / 130
Physical Exam
Physical Exam
Telemetry reviewed: He remains in atrial tachycardia
Reviewed his ICD interrogation findings from yesterday
Alert and orient x 3
Nonfocal neurologically
JVP 6
Regular rate and rhythm with normal S1 and S2, there is no S3 there is no S4. There is a grade 1/6 basal systolic ejection murmur with no rubs. PMI normally placed
Lungs clear to auscultation bilaterally
Abdomen soft nontender positive bowel sounds
No extremity edema
--- NOTE | 2024-08-20 11:30 | W.PN.UPDATE ---
Update Note
Progress Note Update
Patient brought down for cardioversion but was found to be in atrial-paced with intermittent sinus rhythm by device interrogation and 12-lead ECG. No CV performed. Dr. Thomas notified via TT.
--- NOTE | 2024-08-20 11:49 | PTCARENOTE ---
Patient returned from the mushroom laborer AV paced HR 77, patient returned to room, diet ordered.
--- NOTE | 2024-08-20 15:04 | PTCARENOTE ---
Addendum entered by Patrick Reyna RN 08/20/24 15:09:
Called by patient, having palpations, V-pacing BBB HR 108. EKG ordered and completed. 400 mg PO amiodarone given, scheduled dose. BP 100/66
Original Note:
Called by patient, having palpations, wide complex V-pacing HR 108. EKG ordered and completed. 400 mg PO amiodarone given, scheduled dose. BP 100/66
--- NOTE | 2024-08-20 16:43 | W.PN.UPDATE ---
Update Note
Progress Note Update
Talked with patient and 2 children in the room. We talked about the frustration the patient has dealt with since admission. We talked about the disappointment of being in SR earlier today and now appears to be back in AF. We talked about the
nature of AF and likely recurrence. We talked about his AF course thus far including his time at [facility] after previously being a patient at [facility]. Patient is obviously disappointed that he has recurrent AF after amiodarone being stopped and feels that
it is a major setback. We talked about continuing the increased dose of amiodarone 400 mg 3 times daily overnight to help increase his load and if he remains symptomatic in the morning to consider a CV and then discharged home with ongoing
amiodarone 200 mg twice daily until he can follow-up with his anodic operator at [facility]. We talked about that he may also spontaneously converted to SR again. I also had a management of expectation conversation that he could recur with A-fib an hour, a
day or a week after any intervention that we make. Patient and family agreeable to amiodarone 400 mg 3 times daily for now. Patient says that [facility] has previously discussed with him ablate and pace and he has been weighing that option. We
discussed what ablate and pace would mean in the monitoring that he would need to have afterwards. We made a plan to restart some of his outpatient medications including Jardiance 10 mg daily, Toprol-XL 50 mg at bedtime and Entresto 49/51 mg daily.
If stable we will restart Lasix and possibly spironolactone tomorrow. I did remind the patient to be judicious in watching for peritoneal infections while on SGLT2.
[2024-08-20] MEDS: FARXIGA 10 MG PO (17:21)
[2024-08-20] MEDS: TOPROL XL 50 MG PO (17:21)
[2024-08-20] MEDS: ENTRESTO 49 MG/51 MG 1 TAB PO (19:36)
--- NOTE | 2024-08-20 20:59 | PTCARENOTE ---
Rec'd pt at change of shift. Pt AAO*3, VSS, in V-paces rhythm with afib and BBB, pleasant. Pt denies any pain or discomfort. Pt verbalizes safety and comfort. Pt resting with call tracy in reach and agreeable to plan of care. Plan of care
ongoing.
[2024-08-20] MEDS: AMBIEN 10 MG PO (22:07)
[2024-08-21 04:33] VITALS: BP 101/72
[2024-08-21 04:42] VITALS: BMI 30.5
[2024-08-21 05:00] LABS: Hematocrit 44.9 % (39.0-52.0); Hemoglobin 15.1 g/dL (13.0-18.0); Mean Corp Hgb Conc. 33.6 g/dL (33.0-37.0); Mean Corpuscular Hgb 28.8 pg (27.0-31.0); Mean Corpuscular Volume 85.7 fL (80.0-94.0); Mean Platelet Volume 11.1 fL (7.4-10.4); Platelet Count 140 10^3/uL (130-400); Red Blood Cell Count 5.24 10^6/uL (4.70-6.10); Red Cell Dist. Width 15.1 % (11.5-14.5); White Blood Cell Count 9.9 10^3/uL (4.8-10.8)
[2024-08-21 05:20] LABS: Blood Urea Nitrogen 25 mg/dl (9-20); Calcium 9.3 mg/dl (8.4-10.2); Carbon Dioxide 19 mmol/L (22-30); Chloride 105 mmol/L (98-107); Estimated Creatinine Clearance 99 ml/min; Glucose 96 mg/dl (70-99); Magnesium 2.1 mg/dl (1.6-2.3); Potassium 4.2 mmol/L (3.5-5.1); Sodium 134 mmol/L (135-145); eGFR > 60.00
[2024-08-21 06:57] VITALS: BP 95/78
--- NOTE | 2024-08-21 08:04 | W.PN.CARDCBS ---
Addendum entered and electronically signed by Vinicius Barros MD 08/21/24 09:55:
I saw and examined the patient.
The Hand I Cutter's note was reviewed and I agree with the note.
Comment:
GEN: No distress, awake, Ox3
HEENT: supple, anicteric, mmm
LUNGS: CTA, no wheezes/rales
CV: Reg, tachy S1/S2, 1/6 syst LSB,
ABD: soft, BS+, NT/ND
EXT: No edema
NEURO: Gross non-focal
SKIN: No rash
Plan:
failed CV today. Remains in Atach. Other options wouyld be ablate and pace.
Cont Amiodarone 400mg po tid for now.
Decrease to 200mg bid upon D/C
Rec follow up at [facility] to further discuss treatment options
Cont Entresto, Toprol, Farxiga, Lasix
watch BP on Aldactone with atach
Original Note:
Today's Communication / Plan
-
For CV today
Continue amiodarone 400mg TID while admitted, decrease to 200mg BID at discharge
Continue Xarelto 20mg daily
Continue Entresto, Toprol, and Farxiga.
Add back Aldactone, Lasix as BP allows.
Follow up arranged w/ primary information receptionist.
Impression / Plan
-
PCP: Tao Chicas
Motorcycle Designer: Henry Sethi
Financial Aids Officer: Henry Lamb
Impression:
Presented 08/18/2024 with palpitations, tachycardia, chest discomfort
Hypotension
ANNA
Tachycardia
Hypertrophic cardiomyopathy
Heart failure recovered reduced ejection fraction
[employer] ICD
Paroxysmal atrial fibrillation/flutter
Status post PVI ablation with substrate modification with posterior wall modification, mitral annular flutter ablation May 2024 at [place]
s/p CV February 2024
Obstructive sleep apnea
Status post inspire device
Echo 06/11/2024: EF 50%, moderate left atrial dilation. Moderate right atrial dilation. Moderate MR. Mild to moderate AI. Moderate TR with PAP 41 mmHg. Aortic root sinus of Valsalva 4.3 cm, ascending ao 4.2 cm
Echo March 2024 ([facility]): EF 35 to 40%
Echo September 2022 ([facility]): EF 55 to 60%
Plan:
-Presented 08/18/2024 with palpitations, tachycardia, chest discomfort which started 08/15/2024. Found to be tachycardic and hypotensive on arrival. Also ANNA with creat 1.4
-BP improved. Continue Toprol and Entresto.
-Creat normalized, 1.0 08/21.
-Patient has been tachycardic throughout admission. ICD interrogation 08/19 noted atrial tachycardia and he was arranged for CV 08/20, however on arrival to [facility], was in SR. CV cancelled, however then recurred with AF later in the day 08/20.
Remains tachycardic and symptomatic this AM and plan is for repeat attempt at CV this AM.
-Continue amiodarone 400mg TID while admitted with plan to decrease to 200mg BID at discharge. He will continue 200mg BID until seen by primary information receptionist as OP.
-Continues on uninterrupted AC with Xarelto 20mg daily.
-Patient has history of hypertrophic cardiomyopathy and waxing and waning ejection fraction.
-EF most recently improved to 50% by echo 06/11/2024 as noted above.
-Continue to add back GDMT as BP allows. Aldactone and lasix remain on hold. Farxiga substituted for Jardiance while inpatient.
-Troponin negative x 2. Chest pain sounds atypical and most likely related to tachycardia.
-Records outpatient registered public health nurse reviewed.
-Follow up has been arranged w/ primary information receptionist.
HPI 08/19/2024:
Patient is a 69-year-old male with past medical history significant for paroxysmal atrial fibrillation with recent ablation May 2024, hypertrophic cardiomyopathy with [employer] ICD, obstructive sleep apnea with inspire who presents to
emergency department 08/18/2024 with complaints of hypotension, tachycardia/palpitations. Patient reports he had recent ablation at [facility] in May 2024 and was on amiodarone until August 06 when it was discontinued. He
reports baseline heart rates are in the 70s. 3 days prior to admission patient noted increased palpitations and elevated heart rate associated with some fatigue, mild dyspnea and pressure and chest when he was taking deep breaths. He noticed his
heart rate to be elevated in the 100s to 130s on pulse oximetry. He contacted his information receptionist at [facility] who told him to go to emergency department. On arrival to emergency department patient's EKG showed ventricular paced rhythm in the low 100 bpm.
Chest x-ray showed no acute abnormality. Troponin x 2 negative. ProBNP 1330. Creatinine was noted to be elevated at 1.4. He was noted to be hypotensive with blood pressures 70-80's/60's bpm. Patient received 2 L of IV fluid in emergency
department. All cardiac medications with exception of Xarelto and Crestor placed on hold secondary to hypotension. At time of this evaluation patient sitting up on edge of bed. He still notes heart palpitations and tachycardia.
Progress Note - Motorcycle Designer
Subjective
Date of Service: August 21, 2024
Still reports palpitations/discomfort while in AFib.
Objective
Labs:
08/21/24 04:40
08/21/24 04:40
Labs
Hgb 15.1 g/dL (13.0-18.0) 08/21/24 04:40
Hct 44.9 % (39.0-52.0) 08/21/24 04:40
Plt Count 140 10^3/uL (130-400) 08/21/24 04:40
Sodium 134 mmol/L (135-145) L 08/21/24 04:40
Potassium 4.2 mmol/L (3.5-5.1) 08/21/24 04:40
BUN 25 mg/dl (9-20) H 08/21/24 04:40
Creatinine 1.0 mg/dL (0.7-1.3) 08/21/24 04:40
Glucose 96 mg/dl (70-99) 08/21/24 04:40
Troponins
08/18/24 08/19/24 08/19/24
17:50 03:12 04:24
Troponin I 0.020 Cancelled 0.013
08/19/24 08/19/24 08/19/24
07:50 08:33 15:15
Troponin I Cancelled 0.013 Cancelled
Vital Signs and I&O:
Vital Signs
Temp Pulse Resp BP Pulse Ox
98.2 F 100 20 101/72 98
08/21/24 06:55 08/21/24 04:33 08/21/24 06:55 08/21/24 04:33 08/21/24 06:55
Vital Signs
Temp Pulse Resp BP Pulse Ox
98.2 F 100 20 101/72 98
08/21/24 06:55 08/21/24 04:33 08/21/24 06:55 08/21/24 04:33 08/21/24 06:55
Intake & Output
08/19/24 08/20/24 08/21/24 08/22/24
06:59 06:59 06:59 06:59
Intake Total 700 / 700 930 / 930 720 / 720
Output Total 400 / 400 800 / 800 500 / 500
Balance 300 / 300 130 / 130 220 / 220
Physical Exam
Physical Exam
GEN: No distress, awake, alert, oriented x3
HEENT: supple, anicteric, mmm
LUNGS: CTA b/l, no wheezes/rales
CV: Reg, S1/S2, 1/6 syst murmur
EXT: No clubbing, cyanosis, or edema
NEURO: Gross non-focal
SKIN: Warm, dry, no rash
[2024-08-21] MEDS: XARELTO 20 MG PO (08:33)
--- NOTE | 2024-08-21 08:41 | W.PN.HOSP.TC ---
Today's Communication/Plan
-
Electrical cardioversion. Oral amiodarone.
Assessment / Plan
Assessment / Plan
Physical exam:
General: No acute distress
HEENT: Normocephalic, Atraumatic and Dry Mucous Membranes
Respiratory: Clear to Auscultation; Negative Wheezes, Rales or Rhonchi
Cardiac: Regular rate and rhythm, and S1/S2
GI: Soft, Nontender and Nondistended
Musculoskeletal: No Clubbing, No Cyanosis and No Edema
Neuro: Awake, Alert and Oriented, no gross neurological deficit
Psych: Anxious
A/P:
Chest pain, palpitations, tachycardia, hypotension:
Today he went for cardioversion which was unsuccessful
Patient remains in atrial tachycardia but rates are controlled
He also remains on amiodarone
Discussed with cardiology in person shortly after cardioversion.
Possible discharge later today if doing well clinically.
Prior to today:
Today he went for possible cardioversion but he was found to be normal sinus rhythm atrial paced and no cardioversion performed.
Currently on amiodarone 400 mg p.o. 3 times daily which might be the case why he is in normal sinus rhythm at the moment.
Continue cardiac monitoring
Discussed with patient and family at bedside
Rest of care per cardiology recommendations
His symptoms are likely related to recurrent A-fib or a flutter or atrial tachycardia but interrogation of AICD will confirm or reject this hypothesis.
Normal troponin and downtrending x 2
Telemetry shows wide-complex tachycardia in the low 100's ventricular paced rhythm
Stop IV fluid to avoid volume overload
Might need to restart antiarrhythmics but will defer to cardiology
Cardiology consulted today-discussed with cardiology via [place] text today
Patient is in communication with cardiology team at [place] and they are discussing if he would be a candidate for transfer but at the moment no decision has been made especially since we have the same services that can be accomplished here at this
hospital. Discussed with at bedside as well.
Patient is somewhat frustrated that he stopped antiarrhythmics recently and was hoping to stay off but most likely will require it again.
Continue cardiac monitoring
ANNA:
Probably prerenal but also hypotension/cardiac contributing
Improved with IV fluid
Stop IV fluids now
Avoid nephrotoxic
Monitor renal function
Hypotension:
Continue hold diuretics, Jardiance, Entresto, spironolactone
Monitor blood pressure closely
Chronic heart failure and hypertrophic cardiomyopathy with recovered reduced ejection fraction:
Latest echo cardiac in June 2024 EF 50% with moderate left atrial dilation, moderate right atrial dilation, moderate MR, mild to moderate AI, moderate TR with PAP 41 mmHg, aortic root sinus of Valsalva 4.3 cm and ascending aorta 4.2 cm.
Monitor volume status closely
Monitor in and out
Monitor daily weight
Paroxysmal atrial fibrillation/flutter:
Status post PVI ablation with substrate modification with posterior wall modification, mitral annular flutter ablation back in May 2024 at [place]
Status post cardioversion February 2024
On Xarelto 20 mg p.o. daily
Obstructive sleep apnea:
Status post inspire device
DVT prophylaxis:
Xarelto
CODE STATUS:
Full code
Anticipated Discharge: Today
Subjective/Interval History
-
Date of Service: August 21, 2024
Seen shortly after cardioversion today. Denies chest pain or shortness of breath.
Objective Data
-
Labs:
Laboratory Results
08/21/24
04:40
WBC 9.9
Hgb 15.1
Hct 44.9
Plt Count 140
Sodium 134 L
Potassium 4.2
Chloride 105
Carbon Dioxide 19 L
BUN 25 H
Creatinine 1.0
Glucose 96
Calcium 9.3
Vital Signs:
Vital Signs
Temp Pulse Resp BP Pulse Ox
98.2 F 100 20 95/78 98
08/21/24 06:55 08/21/24 08:00 08/21/24 06:55 08/21/24 06:57 08/21/24 06:55
I&O
08/20/24 08/21/24 08/22/24
06:59 06:59 06:59
Intake Total 930 / 930 720 / 720
Output Total 800 / 800 500 / 500
Balance 130 / 130 220 / 220
--- NOTE | 2024-08-21 09:48 | ITS.CL.CARDI ---
Shaping Machine Operator - Cardioversion
Cardioversion
Procedure Report:
Date of Procedure: 08/21/24
Procedure: Cardioversion
Indication: Symptomatic atrial tachycardia
Performing Physician: Vinicius Barros MD
Technique: The patient was brought to the holding area. Signed informed consent was obtained. A time out was called and performed. The patient was anesthetized by the anesthesia service. Anticoagulation status was reviewed and appropriate. R2 pads
were placed anteriorly and posteriorly. A 200 J, 360Jx2 synchronized biphasic shock failed to restore normal sinus rhythm without significant bradycardia. There were no complications.
Conclusion: Failed cardioversion of atrial tachycardia
Recommendation: Routine post cardioversion care. Continue manager long term care anticoagulation.
[2024-08-21 10:16] VITALS: BP 103/85
[2024-08-21] MEDS: MAGNESIUM OXIDE 250 MG PO (10:18)
[2024-08-21] MEDS: CRESTOR 20 MG PO (10:18)
[2024-08-21] MEDS: THERAGRAN 1 TABLET PO (10:19)
[2024-08-21] MEDS: ENTRESTO 49 MG/51 MG 1 TAB PO (10:19)
[2024-08-21] MEDS: PACERONE 400 MG PO (10:19)
[2024-08-21] MEDS: FARXIGA 10 MG PO (10:19)
--- NOTE | 2024-08-21 10:50 | PTCARENOTE ---
Received pt post unsuccessful cardioversion. VSS. Pt AAO x3. Pt denied any adverse reaction to CV attempts. Will monitor.
[2024-08-21 11:40] VITALS: BP 109/79
--- NOTE | 2024-08-21 11:52 | W.DCSUMMARY ---
Discharge Summary
Discharge Data
Date of Admission: 08/18/24
Date of Discharge: 08/21/24
-
Pending Results: No
Hospital Course
Patient is 69 years old male with history of paroxysmal A-fib, hypertrophic cardiomyopathy, AICD in place, [id number], came into the hospital palpitation and found to be hypertensive and tachycardic. Cardiology consulted. Patient had ICD interrogation
which showed atrial tachycardia. He was continued on anticoagulation. Our cardiology team discussed with his outpatient EP jacquard card cutter at [place]. Patient was started on antiarrhythmics with amiodarone. Patient also was taken for electrical
cardioversion but it was unsuccessful. Otherwise, patient has remained hemodynamically stable after initiation of antiarrhythmics and his home medications have been restarted. Cardiology cleared her for discharge today. He will be discharged in
stable condition today.
Discharge duration: 41 minutes
Discharge Plan
-
Patient Disposition: Home (Routine Discharge)
Discharge Diagnosis/Procedures: Atrial tachycardia. Hypotension. Chronic diastolic congestive heart failure with recovered reduced ejection fraction. History of paroxysmal atrial fibrillation.
Diet: Low Cholesterol and Low Sodium
Activity: As tolerated
Blood Work: Please PCP to order CBC, CMP, magnesium within 1 week
Specialty Instructions: Weigh Daily- Call MD for wt gain/loss 3 lbs overnight/5 lbs in 1 week
Referrals:
Vinicius Barros MD [Active] - in one to two weeks
Tao Chicas DO [Family Provider] - in less than 1 week
Prescriptions:
New
amiodarone 200 mg tablet
200 mg PO BID Qty: 60 0RF
Continued
Xarelto 20 MG tablet
20 mg PO DAILY
furosemide 40 mg Tablet
40 mg PO DAILY
therapeutic multivitamin Tablet
1 tab PO DAILY
spironolactone 25 mg Tablet
25 mg PO DAILY
budesonide 0.5 mg/2 mL suspension for nebulization
0.5 mg irrigation BID
Patient Comments:
08/18/24: Empty 1 capsule into 240ml of saline, irrigate each nostril with 120ml
metoprolol succinate 25 mg Tablet Extended Release 24 Hr
50 mg PO QPM
magnesium oxide 250 mg magnesium Tablet
250 mg PO DAILY
rosuvastatin 20 mg Tablet
20 mg PO DAILY
eszopiclone [Lunesta] 3 mg Tablet
3 mg PO HS
Patient Comments:
08/18/24: last filled 08/01/24 for 30 tablets over 30 days
Jardiance 10 mg Tablet
10 mg PO DAILY
sacubitril-valsartan [Entresto] 49-51 mg Tablet
1 tab PO BID
Mupirocin capsule
5 mg irrigation BID
Discharge Orders:
Discharge Patient (As Directed); Ordered 08/21/24
Ordered By: Pedro Suarez
Care Plan Goals
Care Plan Goals:
Problem: Readiness for enhanced knowledge related to diagnosis and treatment plan
Goal: Understand your diagnosis and treatment plan needs, including medications if applicable.
Instructions: Know your diagnosis, underlying causes and treatment plan options, including medications if applicable. Consult with your health care team to learn about your diagnosis and treatment plan, including medications if applicable.
Discharge Date and Time
Discharge Date/Time: 08/21/24 12:51
Print Language: BOLIVIAN
[2024-08-21] MEDS: TYLENOL 650 MG PO (12:00)
== END 2024-08-21 12:51 | disposition home or self-care (01) | DRG 309 ==
LOC: IVU 21:44
PROVIDERS: Registered Nurse; ADMITTING PHYSICIAN Hospitalist; ATTENDING PHYSICIAN Hospitalist; CONSULT PHYSICIAN Internal Medicine Cardiovascular Disease; EMERGENCY PHYSICIAN Emergency Medicine; FAMILY PHYSICIAN Internal Medicine
PROC: 5A2204Z Restoration of Cardiac Rhythm, Single (ICD-10-PCS; 2024-08-21)
DX: I47.19 Other supraventricular tachycardia (principal); I42.2 Other hypertrophic cardiomyopathy; I50.22 Chronic systolic (congestive) heart failure; N17.9 Acute kidney failure, unspecified; I48.0 Paroxysmal atrial fibrillation; I11.0 Hypertensive heart disease with heart failure; I95.2 Hypotension due to drugs; T50.2X5A Adverse effect of carbonic-anhydrase inhibitors, benzothiadiazides and other diuretics, initial encounter; G47.33 Obstructive sleep apnea (adult) (pediatric); Z79.01 Long term (current) use of anticoagulants
CPT/HCPCS: 71046; 80048; 80053; 83735; 83880; 84484; 85025; 85027; 93005; 96360; 99285

== ENCOUNTER → 2024-08-30 07:25 | Outpatient (REF) | payer MEDICARE, OTHER, SELFPAY ==
[2024-08-30 08:14] LABS: % Basophils 0.5 % (0-2); % Immature Granulocytes 0.3 % (0-0.5); % Lymphocytes 13.9 % (20.5-51.1); % Monocytes 7.5 % (1.7-9.3); % Neutrophils 75.8 % (42.2-75.2); Absolute Basophils 0.1 10^3/uL (0-0.2); Absolute Eosinophils 0.2 10^3/uL (0-0.7); Absolute Lymphocytes 1.4 10^3/uL (1.2-3.4); Absolute Monocytes 0.8 10^3/uL (0.1-0.6); Absolute Neutrophils 7.8 10^3/uL (1.4-6.5); Hematocrit 48.5 % (39.0-52.0); Hemoglobin 15.9 g/dL (13.0-18.0); Mean Corp Hgb Conc. 32.8 g/dL (33.0-37.0); Mean Corpuscular Hgb 28.6 pg (27.0-31.0); Mean Corpuscular Volume 87.4 fL (80.0-94.0); Mean Platelet Volume 11.1 fL (7.4-10.4); Nucleated Red Blood Cells % 0 % (-); Platelet Count 186 10^3/uL (130-400); Red Blood Cell Count 5.55 10^6/uL (4.70-6.10); Red Cell Dist. Width 16.2 % (11.5-14.5); White Blood Cell Count 10.3 10^3/uL (4.8-10.8)
[2024-08-30 08:38] LABS: ALT (SGPT) 42 U/L (0-50); AST (SGOT) 38 U/L (17-59); Albumin 4.8 g/dl (3.5-5.0); Alkaline Phosphatase 60 U/L (38-126); Blood Urea Nitrogen 26 mg/dl (9-20); Calcium 9.8 mg/dl (8.4-10.2); Carbon Dioxide 25 mmol/L (22-30); Chloride 104 mmol/L (98-107); Glucose 102 mg/dl (70-99); Potassium 5.3 mmol/L (3.5-5.1); Sodium 143 mmol/L (135-145); Total Bilirubin 1.2 mg/dl (0.2-1.3); Total Protein 7.3 g/dl (6.3-8.2); eGFR > 60.00
[2024-09-01 00:27] LABS: Magnesium, RBC's Result 6.1 mg/dL (3.6-7.5)
== END ==
LOC: REG 07:25
PROVIDERS: ATTENDING PHYSICIAN Internal Medicine
DX: Z79.899 Other long term (current) drug therapy (principal); R79.9 Abnormal finding of blood chemistry, unspecified; R74.01 Elevation of levels of liver transaminase levels; R79.89 Other specified abnormal findings of blood chemistry; I48.0 Paroxysmal atrial fibrillation
CPT/HCPCS: 36415; 80053; 83735; 85025

== ENCOUNTER → 2024-11-13 15:03 | Outpatient (REF) | payer MEDICARE, OTHER, SELFPAY ==
[2024-11-13 16:31] LABS: % Basophils 0.6 % (0-2); % Eosinophils 1.6 % (0-6); % Immature Granulocytes 0.4 % (0-0.5); % Lymphocytes 9.2 % (20.5-51.1); % Monocytes 14.8 % (1.7-9.3); % Neutrophils 73.4 % (42.2-75.2); Absolute Eosinophils 0.1 10^3/uL (0-0.7); Absolute Lymphocytes 0.7 10^3/uL (1.2-3.4); Absolute Monocytes 1.1 10^3/uL (0.1-0.6); Absolute Neutrophils 5.2 10^3/uL (1.4-6.5); Hematocrit 48.4 % (39.0-52.0); Hemoglobin 15.9 g/dL (13.0-18.0); Mean Corp Hgb Conc. 32.9 g/dL (33.0-37.0); Mean Corpuscular Hgb 29.2 pg (27.0-31.0); Mean Platelet Volume 11.5 fL (7.4-10.4); Nucleated Red Blood Cells % 0 % (-); Platelet Count 150 10^3/uL (130-400); Red Blood Cell Count 5.44 10^6/uL (4.70-6.10); Red Cell Dist. Width 15.1 % (11.5-14.5); White Blood Cell Count 7.1 10^3/uL (4.8-10.8)
[2024-11-13 16:49] LABS: ALT (SGPT) 70 U/L (0-50); AST (SGOT) 54 U/L (17-59); Alkaline Phosphatase 67 U/L (38-126); Blood Urea Nitrogen 25 mg/dl (9-20); Calcium 9.4 mg/dl (8.4-10.2); Carbon Dioxide 27 mmol/L (22-30); Chloride 98 mmol/L (98-107); Glucose 86 mg/dl (70-99); Potassium 4.2 mmol/L (3.5-5.1); Sodium 139 mmol/L (135-145); Total Bilirubin 1.2 mg/dl (0.2-1.3); Total Protein 7.5 g/dl (6.3-8.2); eGFR > 60.00
[2024-11-13 16:57] LABS: Complement C3 114 mg/dl (88-165); IgA 221 mg/dl (70-400); IgG 889 mg/dl (700-1600); IgM 108 mg/dl (40-230)
[2024-11-13 17:01] LABS: Erythrocyte Sed Rate 10 mm/hour (0-20)
[2024-11-15 21:01] LABS: IgE 123 kU/L (<=214)
[2024-11-15 22:28] LABS: ANA, IgG Reflex to HEp-2 None Detected (None Detected)
[2024-11-15 22:51] LABS: Myeloperoxidase Antibody 0 AU/mL (0-19); Serine Protease-3, IgG 0 AU/mL (0-19)
== END ==
LOC: RAD 15:03
PROVIDERS: ATTENDING PHYSICIAN Internal Medicine
DX: R50.9 Fever, unspecified (principal); R79.9 Abnormal finding of blood chemistry, unspecified
CPT/HCPCS: 36415; 71046; 80053; 82784; 82785; 83516; 85025; 85652; 86038; 86140; 86160; 86162

== ENCOUNTER → 2024-11-19 10:02 | Outpatient (REF) | payer MEDICARE, OTHER, SELFPAY | LOC: HWRAD 10:02 | PROVIDERS: ATTENDING PHYSICIAN Internal Medicine | DX: R50.9 Fever, unspecified (principal) | CPT/HCPCS: 70486 ==

== ENCOUNTER → 2024-12-16 14:20 | Outpatient (REF) | payer MEDICARE, OTHER, SELFPAY ==
[2024-12-16 14:51] LABS: % Basophils 0.5 % (0-2); % Eosinophils 3.6 % (0-6); % Immature Granulocytes 0.2 % (0-0.5); % Lymphocytes 14.1 % (20.5-51.1); % Monocytes 11.7 % (1.7-9.3); % Neutrophils 69.9 % (42.2-75.2); Absolute Eosinophils 0.3 10^3/uL (0-0.7); Absolute Lymphocytes 1.2 10^3/uL (1.2-3.4); Absolute Neutrophils 5.8 10^3/uL (1.4-6.5); Hematocrit 47.6 % (39.0-52.0); Mean Corp Hgb Conc. 33.6 g/dL (33.0-37.0); Mean Corpuscular Hgb 29.5 pg (27.0-31.0); Mean Corpuscular Volume 87.7 fL (80.0-94.0); Mean Platelet Volume 10.9 fL (7.4-10.4); Nucleated Red Blood Cells % 0 % (-); Platelet Count 157 10^3/uL (130-400); Red Blood Cell Count 5.43 10^6/uL (4.70-6.10); Red Cell Dist. Width 14.5 % (11.5-14.5); White Blood Cell Count 8.2 10^3/uL (4.8-10.8)
[2024-12-16 16:45] LABS: ALT (SGPT) 44 U/L (0-50); AST (SGOT) 37 U/L (17-59); Albumin 4.9 g/dl (3.5-5.0); Alkaline Phosphatase 63 U/L (38-126); Blood Urea Nitrogen 27 mg/dl (9-20); Calcium 9.8 mg/dl (8.4-10.2); Carbon Dioxide 25 mmol/L (22-30); Chloride 104 mmol/L (98-107); Glucose 99 mg/dl (70-99); Potassium 4.6 mmol/L (3.5-5.1); Sodium 142 mmol/L (135-145); Total Bilirubin 1.1 mg/dl (0.2-1.3); Total Protein 7.1 g/dl (6.3-8.2); eGFR > 60.00
== END ==
LOC: REG 14:20
PROVIDERS: ATTENDING PHYSICIAN Nurse Practitioner Family; FAMILY PHYSICIAN Internal Medicine
DX: I48.0 Paroxysmal atrial fibrillation (principal); Z09 Encounter for follow-up examination after completed treatment for conditions other than malignant neoplasm
CPT/HCPCS: 36415; 80053; 85025; 93005

== ENCOUNTER → 2025-01-21 10:34 | Outpatient (REF) | payer MEDICARE, OTHER, SELFPAY | LOC: HWRAD 10:34 | PROVIDERS: ATTENDING PHYSICIAN Otolaryngology; FAMILY PHYSICIAN Internal Medicine | DX: J32.0 Chronic maxillary sinusitis (principal) | CPT/HCPCS: 70486 ==

== ENCOUNTER → 2025-07-04 08:46 | Outpatient (REF) | payer MEDICARE, OTHER, SELFPAY ==
[2025-07-04 09:22] LABS: APTT 39.1 Sec (23.4-35.0)
== END ==
LOC: REG 08:46
PROVIDERS: ATTENDING PHYSICIAN Internal Medicine Clinical Cardiac Electrophysiology; FAMILY PHYSICIAN Internal Medicine Geriatric Medicine
DX: I42.2 Other hypertrophic cardiomyopathy (principal); N17.2 Acute kidney failure with medullary necrosis
CPT/HCPCS: 36415; 85730